=== PATIENT | female | born 1955 | race Caucasian/White ===

== ENCOUNTER 2024-03-09 07:00 | Outpatient (CLI) | payer MEDICARE ==
--- NOTE | 2024-03-09 12:29 | XRAY Report ---
PROCEDURE: Chest 2V INDICATIONS: COUGH/WHEEZING TECHNIQUE: 2 views of the chest were acquired. COMPARISON: None. FINDINGS: Surgical changes and devices: None. Lungs and pleura: No pleural effusions or pneumothorax. Lungs are clear. Linear atelectasis versus scarring, left lung base. Mediastinum: Mediastinal contours appear normal. Heart size is normal. Bones and chest wall: No suspicious bony lesions. Overlying soft tissues appear unremarkable. IMPRESSION: Linear atelectasis versus scarring, left lung base. No focal pneumonia. Reviewed by: Rob Sosa MD on 03/09/2024 12:27 PM PDT Approved by: Rob Sosa MD on 03/09/2024 12:27 PM PDT Station ID: [id number]
== END 2024-03-09 23:59 | disposition home or self-care (01) ==
LOC: DI.S 07:00
PROVIDERS: ATTEND Registered Nurse
DX: R05.1 Acute cough (principal); R06.2 Wheezing